=== PATIENT | male | born 1970 | race Caucasian/White ===

== ENCOUNTER 2019-08-30 04:32 | Emergency (ER) | payer OTHER ==
[~2019-08-30] VITALS: Ht 185.4 cm; Wt 98.9 kg
--- NOTE | 2019-08-30 04:39 | NUR ---
PT [id number] FROM HOME C/C CHEST PRESSURE S/P GETTING SCARED OF RAT IN KITCHEN ADMITS TO "MORE THAN USUAL" MARIJUANA USE. PT AOX4. NAD NOTED. RESP EVEN AND UNLABORED. PT STOPPED TAKING HYPERTENSION MEDICATION A YEAR AGO. PT ON MONITOR IN BED 11. WILL CONTINUE TO MONITOR.
--- NOTE | 2019-08-30 05:23 | NUR ---
BLOOD DRAWN AND GIVEN TO PHLEB
[2019-08-30 05:38] LABS: CALCIUM, SERUM 9.7 mg/dL (8.5-10.1); CARBON DIOXIDE 27 mmol/L (21-32); CHLORIDE 108 mmol/L (98-107); GLUCOSE 102 mg/dL (74-106); SODIUM SERUM 145 mmol/L (136-145); UREA NITROGEN, BLOOD 15 mg/dL (7-18)
[2019-08-30 05:40] LABS: BASOPHILS # (AUTO) 0.1 /CMM (0.0-0.2); BASOPHILS % (AUTO) 0.7 % (0.0-2.0); EOSINOPHILS % (AUTO) 1.6 % (0.0-6.0); HEMATOCRIT 50 % (39-51); HEMOGLOBIN 16.6 g/dL (13.5-17.5); LYMPHOCYTES # (AUTO) 1.9 /CMM (0.8-4.8); LYMPHOCYTES % (AUTO) 24.6 % (20.0-44.0); MEAN CORPUSCULAR HGB CONC 34 g/dl (31.0-36.0); MEAN CORPUSCULAR VOLUME 95 fL (80-96); MONOCYTES # (AUTO) 0.9 /CMM (0.1-1.30); MONOCYTES % (AUTO) 11.5 % (2.0-12.0); NEUTROPHILS # (AUTO) 4.8 /CMM (1.8-8.9); NEUTROPHILS % (AUTO) 61.6 % (43.0-81.0); RED BLOOD CELL COUNT(AUTO) 5.24 MIL/uL (4.5-6.0); WHITE BLOOD COUNT (AUTO) 7.8 K/uL (4.3-11.0)
[2019-08-30] MEDS ORDERED: LABETALOL HCL IV 100MG VIAL IV ONE (06:00)
[2019-08-30] MEDS ORDERED: LABETALOL HCL IV 100MG VIAL ONE (06:08)
[2019-08-30 06:15] LABS: PLATELET COUNT (AUTO) 238 /CMM (150-450)
--- NOTE | 2019-08-30 06:18 | NUR ---
Patient is resting comfortably in bed. PT DENIES PAIN. WILL CONTINUE TO MONITOR.
[2019-08-30] MEDS ORDERED: hydrALAZINE HCL IV 20 MG VIAL ONE (06:46)
[2019-08-30] MEDS ORDERED: hydrALAZINE HCL IV 20 MG VIAL IV ONE (07:00)
[2019-08-30 07:08] VITALS: BP 174/103
--- NOTE | 2019-08-30 07:14 | NUR ---
IV removed. Catheter intact and site benign. Pressure and 4x4 applied to site. No bleeding noted.Patient discharged to home in stable condition. Written and verbal after care instructions given. Patient verbalizes understanding of instruction.
== END 2019-08-30 07:16 | disposition home or self-care (01) ==
LOC: ER 04:34
DX: I10 Essential (primary) hypertension (principal)
CPT/HCPCS: 36415; 71045; 80048; 84484; 85025; 93005; 96374; 96375; 99284; J0360; J3490